=== PATIENT | male | born 1990 | race African-American/Black ===

== ENCOUNTER 2021-11-18 11:02 | Inpatient (IN) ==
[2021-11-18 11:47] LABS: Basophils # (auto) 0.06 K/uL (0-0.2); Basophils % (auto) 0.8 %; Eosinophils % (auto) 2.6 %; Hematocrit (blood only) 45.9 % (40.1-51.0); Hemoglobin 15.1 g/dl (14.0-18.0); Immature Granulocytes # (auto) 0.02 K/uL (0.00-0.02); Immature Granulocytes % (auto) 0.3 %; Lymphocytes # (auto) 2.33 K/uL (1.2-3.4); Lymphocytes % (auto) 30.1 %; Mean Corpuscular Hemoglobin 28.3 pg (25.0-34.0); Mean Corpuscular Hgb Conc 32.9 g/dL (32.0-36.0); Mean Corpuscular Volume 86.1 fL (80.0-100.0); Mean Platelet Volume 10.8 fL (9.4-12.4); Monocytes # (auto) 0.64 K/uL (0.24-0.82); Monocytes % (auto) 8.3 %; Neutrophils # (auto) 4.49 K/uL (1.4-6.5); Neutrophils % (auto) 57.9 %; Platelet Count 236 K/uL (130-400); RDW Coefficient of Variation 12.8 % (11.5-14.5); RDW Standard Deviation 40.4 fL (36.4-46.3); Red Blood Count 5.33 M/uL (4.63-6.08); White Blood Count 7.74 K/ul (4.8-10.8)
[2021-11-18 11:59] LABS: D Dimer 250 ug/L FEU (0-500); Partial Thromboplastin Ratio 1.1; Partial Thromboplastin Time 30.4 Seconds (21.0-31.0); Prothrombin Time 11.1 Seconds (9.0-12.0)
--- NOTE | 2021-11-18 12:12 | XRay Report ---
XR chest 1V portable CLINICAL HISTORY: Chest Pain TECHNIQUE: Single frontal radiograph of the chest was obtained. Comparison: None available at the time of this dictation. FINDINGS: No lines and tubes are seen. The cardiomediastinal silhouette is normal. The lungs are clear. Patient has a reported nodule/mass in the left lung, this is not well visualized radiographically. There is a left apical pneumothorax measuring approximately 36 mm in greatest thickness. IMPRESSION: Left apical pneumothorax measuring up to 36 mm. ACT 112: Negative or not required by law. Electronically signed by: Pro Sharpe M.D. 11/18/2021 12:10 PM
[2021-11-18 12:14] LABS: Troponin I High Sensitivity < 2.3 pg/ml (0-20)
[2021-11-18 12:15] LABS: Alanine Aminotransferase 12 U/L (7-52); Albumin Globulin Ratio 1.5 (0.9-2); Albumin Level 4.3 gm/dl (3.4-5.0); Alkaline Phosphatase 107 U/L (34-104); Anion Gap 5 (3-11); Aspartate Aminotransferase 16 U/L (13-39); BUN Creatinine Ratio 10.5 (10-20); Bilirubin,Total 0.8 mg/dl (0.2-1.0); Blood Urea Nitrogen 11 mg/dl (6-23); Calcium 9.2 mg/dl (8.5-10.1); Carbon Dioxide 30 mmol/L (21-32); Chloride 101 mmol/L (98-107); Est GFR (African American) 109.1 ml/min; Est GFR (Non-African American) 94.1 ml/min; Globulin 2.9 gm/dl (2.5-4.0); Glucose 86 mg/dl (70-99(Fasting)); Potassium 4.1 mmol/L (3.5-5.1); Sodium 136 mmol/L (136-145); Total Protein 7.2 gm/dl (6.0-8.3)
--- NOTE | 2021-11-18 12:36 | Emergency Department Note ---
Impression & Plan Pneumothorax, Sequestered lung, Chest pain ED Provider Note NAME: ZULEIKA [id number] [place] AGE: 31 SEX: M : 1990 ARRIVES VIA: Walk-In INFORMANT: Patient ED PROVIDER(S): Dharmesh Guidry DO CHIEF COMPLAINT: Left sided chest pain HPI: Patient is a 31-year-old male who presents ER for left-sided chest pain which has been present since this past Wednesday. He admits to pain with movement of his left upper extremity. Does not change with breathing. Is currently a 6 out of 10. Does go through to the back. Denies any significant shortness of breath, belly pain, nausea, vomiting, or diarrhea. No dysuria, urgency, or frequency. No trauma. ROS: See above HPI for pertinent positives & negatives. A total of 10 systems reviewed and were otherwise negative. PAST MEDICAL HISTORY:See Below PAST SURGICAL HISTORY:See Below FAMILY HISTORY:See Below SOCIAL HISTORY:See Below HOME MEDICATIONS:See Below ALLERGIES:See Below VITALS:See Below PHYSICAL EXAMINATION: GENERAL: Sitting up in bed, alert, well appearing, well nourished, no distress, non-toxic EYE EXAM: normal conjunctiva. OROPHARYNX: no exudate, no erythema, lips, buccal mucosa, and tongue normal and mucous membranes are moist NECK: supple, no nuchal rigidity, no adenopathy, non-tender LUNGS: Clear to auscultation. Normal chest wall mechanics HEART: no murmurs, S1 normal and S2 normal ABDOMEN: abdomen soft, non-tender, normo-active bowel sounds, no masses, no rebound or guarding. BACK: Back is symmetrical on inspection and there is no deformity, no midline tenderness, no CVA tenderness. SKIN: no rashes and no bruising UPPER EXTREMITIES: upper extremities are grossly normal. LOWER EXTREMITIES: No pitting edema. Calf cervical bilateral NEURO EXAM: Normal sensorium, cranial nerves II-XII grossly intact, normal speech, no gross weakness of arms, no gross weakness of legs. MEDICAL DECISION MAKING: Patient is a 31-year-old male who presents the ER for left chest pain. IV was established blood work was obtained. Labs showed no significant leukocytosis or anemia. INR unremarkable. D-dimer negative. BMP on LFTs bilirubin was unremarkable. Troponin was negative. Chest x-ray shows pneumothorax but patient reports that he had a lung mass previously and consequently CT a of the chest was performed which showed lung sequestration in combination with 20% pneumothorax. This was discussed with Dr. Combs from our pulmonology service and he recommended discussing with thoracic surgery to see if this is something that they want to operate on and have the patient transferred down to today or if they will follow this up as an outpatient. Called [facility] and sent the images via text message to thoracic surgeon to review them as he w as unable to get them in life image as it was down. He recommends having him follow-up as an outpatient and they will contact him as they have his information as he was set up to have surgery in [place] but never followed up. Patient was updated at bedside. Discussed with Basilio Silva from [facility] service and patient was admitted. Dr. Combs was updated patient was admitted for further work-up. He remained on nonrebreather while in the ER. Triage Nursing notes reviewed. Limited review of prior medical records performed Vital Signs: reviewed and remarkable for no significant abnormalities Differential diagnosis: Cardiac ischemia, aortic dissection, pulmonary embolism, pneumothorax, pneumonia, pericarditis, myocarditis, esophageal rupture, GERD, cholecystitis, pancreatitis, musculoskeletal, as well as other pathologies. ER treatment provided: See below Diagnostics interpreted by me: ECG: Sinus rhythm rate of 76 Normal axis No PVCs QTC 396 T wave version in V1 Cardiac Monitoring: An order was placed for continuous cardiac monitoring. The monitor shows a rate of 75 with sinus rhythm. Laboratory studies: As stated above and show below. Imaging studies: CT angio of the chest as described above Chest x-ray with a pneumothorax Consultation(s): Discussed with [facility] hospitalist, [facility] ore storage drier and [facility] [address] thoracic surgery as described above Procedures: none Critical Care: I have personally spent 33 minutes of critical care time in the direct managemen t of this patient. This includes bedside care, interpretation of diagnostic studies, and testing, discussion with consultants, patient, and family members, and other required patient management activities. This 33 minutes is in excess of all separately billable procedures. Past Med/Surg History Social History Smoking Status: Never smoker Allergies Allergies Allergy/AdvReac Type Severity Reaction Status Date / Time aspirin Allergy Severe Verified 11/18/21 14:43 Home Meds Home Medications Medication Instructions Recorded Confirmed No Known Home Medications 11/18/21 11/18/21 Results & Data (ED) Vital Signs Vital Signs - 24 hr 11/18/21 11:09 11/18/21 12:10 11/18/21 12:10 Temperature 36.5 C Temperature Source Skin Pulse Rate 86 Pulse Rate [Apical] Pulse Rate from SpO2 Sensor Pulse Rhythm [Apical] Respiratory Rate 20 18 Respiratory Effort / Characteristics Non-Labored Spontaneous Respiratory Depth Normal Respiratory Pattern Regular Blood Pressure 129/73 Blood Pressure [Left Arm] Blood Pressure Mean 91 Blood Pressure Mean [Left Arm] Pulse Oximetry 98 99 99 Oxygen Delivery Method Room Air Room Air Room Air Oxygen Flow Rate Sepsis Recent Fever Within 48 Hours No Sepsis New/Unexplained Change in Mental Status N/A Sepsis Action Taken by Nursing No Action Required 11/18/21 12:39 11/18/21 15:11 11/18/21 12:39 Temperature 36.8 C Temperature Source Oral Pulse Rate 86 Pulse Rate [Apical] 84 82 Pulse Rate from SpO2 Sensor Pulse Rhythm [Apical] Regular Respiratory Rate 18 18 Respiratory Effort / Characteristics Non-Labored Spontaneous Respiratory Depth Normal Respiratory Pattern Blood Pressure Blood Pressure [Left Arm] 114/75 120/95 Blood Pressure Mean Blood Pressure Mean [Left Arm] 88 103 Pulse Oximetry 100 100 Oxygen Delivery Method Non-rebreather Non-rebreather Oxygen Flow Rate 15 15 Sepsis Recent Fever Within 48 Hours Sepsis New/Unexplained Change in Mental Status Sepsis Action Taken by Nursing 11/18/21 13:00 11/18/21 13:30 11/18/21 14:00 Temperature Temperature Source Pulse Rate 87 97 H 90 Pulse Rate [Apical] Pulse Rate from SpO2 Sensor 87 95 H 92 H Pulse Rhythm [Apical] Respiratory Rate 22 18 23 Respiratory Effort / Characteristics Respiratory Depth Respiratory Pattern Blood Pressure 114/75 Blood Pressure [Left Arm] Blood Pressure Mean 88 Blood Pressure Mean [Left Arm] Pulse Oximetry 100 100 100 Oxygen Delivery Method Oxygen Flow Rate Sepsis Recent Fever Within 48 Hours Sepsis New/Unexplained Change in Mental Status Sepsis Action Taken by Nursing Laboratory Data Result diagrams: 11/18/21 11:28 11/18/21 11:28 Lab Results 11/18/21 11/18/21 11/18/21 Range/Units 11:28 11:28 11:28 WBC 7.74 (4.8-10.8) K/ul RBC 5.33 (4.63-6.08) M/uL Hgb 15.1 (14.0-18.0) g/dl Hct 45.9 (40.1-51.0) % MCV 86.1 (80.0-100.0) fL MCH 28.3 (25.0-34.0) pg MCHC 32.9 (32.0-36.0) g/dL RDW Std Deviation 40.4 (36.4-46.3) fL RDW Coeff of Russel 12.8 (11.5-14.5) % Plt Count 236 (130-400) K/uL MPV 10.8 (9.4-12.4) fL Immature Gran % (Auto) 0.3 % Neut % (Auto) 57.9 % Lymph % (Auto) 30.1 % [place] % (Auto) 8.3 % Eos % (Auto) 2.6 % Baso % (Auto) 0.8 % Neut # (Auto) 4.49 (1.4-6.5) K/uL Lymph # (Auto) 2.33 (1.2-3.4) K/uL [place] # (Auto) 0.64 (0.24-0.82) K/uL Eos # (Auto) 0.20 (0-0.50) K/uL Baso # (Auto) 0.06 (0-0.2) K/uL Immature Gran # (Auto) 0.02 (0.00-0.02) K/uL PT 11.1 (9.0-12.0) Seconds INR 1.0 (0.9-1.1) APTT 30.4 (21.0-31.0) Seconds PTT Ratio 1.1 D-Dimer 250 (0-500) ug/L FEU Sodium 136 (136-145) mmol/L Potassium 4.1 (3.5-5.1) mmol/L Chloride 101 (98-107) mmol/L Carbon Dioxide 30 (21-32) mmol/L Anion Gap 5 (3-11) BUN 11 (6-23) mg/dl Creatinine 1.05 (0.6-1.4) mg/dl Est Cr Clr Drug Dosing 114.0 ml/min Est GFR ( Amer) 109.1 ml/min Est GFR (Non-Af Amer) 94.1 ml/min BUN/Creatinine Ratio 10.5 (10-20) Glucose 86 (70-99(Fasting)) mg/dl Calcium 9.2 (8.5-10.1) mg/dl Total Bilirubin 0.8 (0.2-1.0) mg/dl AST 16 (13-39) U/L ALT 12 (7-52) U/L Alkaline Phosphatase 107 H (34-104) U/L Troponin I High Sens < 2.3 (0-20) pg/ml Total Protein 7.2 (6.0-8.3) gm/dl Albumin 4.3 (3.4-5.0) gm/dl Globulin 2.9 (2.5-4.0) gm/dl Albumin/Globulin Ratio 1.5 (0.9-2) Administered Medications Discontinued Medications Ioversol (Optiray 300 500ml) 112 ml IV ONCE ONE Stop: 11/18/21 12:56 Last Admin: 11/18/21 12:56 Dose: 112 ml Documented By: [facility] Data Radiologist's Impression: Chest X-Ray 11/18/21 11:13 XR chest 1V portable CLINICAL HISTORY: Chest Pain TECHNIQUE: Single frontal radiograph of the chest was obtained. Comparison: None available at the time of this dictation. FINDINGS: No lines and tubes are seen. The cardiomediastinal silhouette is normal. The lungs are clear. Patient has a reported nodule/mass in the left lung, this is not well visualized radiographically. There is a left apical pneumothorax measuring approximately 36 mm in greatest thickness. IMPRESSION: Left apical pneumothorax measuring up to 36 mm. ACT 112: Negative or not required by law. Electronically signed by: Pro Sharpe M.D. 11/18/2021 12:10 PM Chest CTA 11/18/21 12:12 CT ANGIOGRAPHY OF THE CHEST, PULMONARY EMBOLUS PROTOCOL CLINICAL HISTORY: Shortness of breath. Left-sided chest pain. COMPARISON STUDY: Chest radiograph performed earlier today. TECHNIQUE: Following IV administration of 112 mL of Optiray, helical axial i mages of the chest were obtained utilizing the pulmonary embolus protocol. Maximal intensity projections and sagittal and coronal reformats were viewed on an independent 3D workstation. IV contrast was administered without complication. Automated exposure control was utilized for the study. A dose lowering technique was utilized adhering to the principles of ALARA. CT DOSE: 448.84 mGycm FINDINGS: No pulmonary emboli are identified. There is no thoracic aortic dissection. Trace left pleural effusion. Size of the heart is normal. There is no pericardial effusion. A small left pneumothorax occupying 20% of the hemithorax is noted. There is no right pneumothorax. No acute rib fractures are identified. No definite blebs are identified. Note is made of a vessel measuring 9 mm in caliber arising from the left lateral aspect of the distal descending thoracic aorta. This supplies the posterior and medial basal segments of the left lower lobe. Air trapping is noted. Scattered airspace opacities within this portion of the lung are noted. Secretions within the bronchi are noted. No additional anomalies are identified on this exam. No significant abnormality within the bony thorax and visualized portions of the upper abdomen is present. IMPRESSION: 1. No pulmonary emboli identified. 2. Small left pneumothorax occupying 20% of the left hemithorax. Trace left pleural effusion. No definite blebs identified. 3. Large vessel measuring 9 mm in caliber arising from the left lateral aspect of the distal descending thoracic aorta which supplies the posterior and medial basal segments of the left lower lobe. This represents an intralobar pulmonary sequestration. Associated airspace opacities may reflect pneumonia. Although unusual, these can be a cause for spontaneous pneumothorax. Therefore, the pneu mothorax could be related to the sequestration or an occult bleb. Thoracic surgical consultation is recommended. ACT 112: Negative or not required by law. Electronically signed by: Tommy Winter M.D. 11/18/2021 1:17 PM Discharge Plan Visit Data Chief Complaint: Chest Pain Stated Complaint: CHEST PAIN, HX OF PE ED Provider: Dharmesh Guidry Discharge Problem: Pneumothorax, Sequestered lung, Chest pain Forms Stand Alone Forms: My [employer] Prescriptions Prescriptions: No Action No Known Home Medications Referrals Referrals: Rajat ELLIOTT [Primary Care Provider] -
[2021-11-18] MEDS ORDERED: OPTIRAY 300 500mL IV ONE (12:55)
--- NOTE | 2021-11-18 13:19 | CT Scan Report ---
CT ANGIOGRAPHY OF THE CHEST, PULMONARY EMBOLUS PROTOCOL CLINICAL HISTORY: Shortness of breath. Left-sided chest pain. COMPARISON STUDY: Chest radiograph performed earlier today. TECHNIQUE: Following IV administration of 112 mL of Optiray, helical axial images of the chest were o btained utilizing the pulmonary embolus protocol. Maximal intensity projections and sagittal and cor onal reformats were viewed on an independent 3D workstation. IV contrast was administered without co mplication. Automated exposure control was utilized for the study. A dose lowering technique was ut ilized adhering to the principles of ALARA. CT DOSE: 448.84 mGycm FINDINGS: No pulmonary emboli are identified. There is no thoracic aortic dissection. Trace left ple ural effusion. Size of the heart is normal. There is no pericardial effusion. A small left pneumothor ax occupying 20% of the hemithorax is noted. There is no right pneumothorax. No acute rib fractures a re identified. No definite blebs are identified. Note is made of a vessel measuring 9 mm in caliber a rising from the left lateral aspect of the distal descending thoracic aorta. This supplies the motel front desk clerk ior and medial basal segments of the left lower lobe. Air trapping is noted. Scattered airspace opaci ties within this portion of the lung are noted. Secretions within the bronchi are noted. No additiona l anomalies are identified on this exam. No significant abnormality within the bony thorax and visual ized portions of the upper abdomen is present. IMPRESSION: 1. No pulmonary emboli identified. 2. Small left pneumothorax occupying 20% of the left hemithorax. Trace left pleural effusion. No defi nite blebs identified. 3. Large vessel measuring 9 mm in caliber arising from the left lateral aspect of the distal descendi ng thoracic aorta which supplies the posterior and medial basal segments of the left lower lobe. This represents an intralobar pulmonary sequestration. Associated airspace opacities may reflect pneumoni a. Although unusual, these can be a cause for spontaneous pneumothorax. Therefore, the pneumothorax c ould be related to the sequestration or an occult bleb. Thoracic surgical consultation is recommended . ACT 112: Negative or not required by law. Electronically signed by: Tommy Winter M.D. 11/18/2021 1:17 PM
--- NOTE | 2021-11-18 13:30 | Electrocardiogram Report ---
Test Reason : Blood Pressure : / mmHG Vent. Rate : 076 BPM Atrial Rate : 076 BPM P-R Int : 134 ms QRS Dur : 078 ms QT Int : 352 ms P-R-T Axes : 064 089 056 degrees QTc Int : 396 ms Normal sinus rhythm Normal ECG No previous ECGs available Confirmed by Maxwell Wilder ([id number]) on 11/18/2021 1:29:53 PM Referred By: Rajat ELLIOTT Confirmed By:Maxwell Wilder
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
--- NOTE | 2021-11-18 17:06 | Pulmonary Consultation ---
Date of Consultation November 18, 2021 Assessment & Plan (1) Spontaneous pneumothorax: (2) Pulmonary sequestration: (3) Chest pain: Plan CT chest 11/18/2021 personally reviewed: Left-sided pneumothorax with no mediastinal shift Left lower lobe pulmonary sequestration with blood vessel coming directly from descending thoracic aorta Left lower lobe sequestrated pulmonary note does show some tree-in-bud opacity/nodularity No mediastinal adenopathy --Spontaneous pneumothorax Left-sided No prior history of trauma On the CT chest I do not see any clear blebs Continue to monitor with nonrebreather is If there is any worsening in pneumothorax will do aspiration or chest tube placement -- Pulmonary sequestration Seems to be intralobar left lower lobe There is a blood vessel directly coming from descending thoracic aorta Nonurgent cardiothoracic consultation ER did reach out to [place] [facility] surgery who recommended conservative management right now and outpatient follow-up -- History of marijuana use Plan: Continue with nonrebreather Avoid any intervention which increases intrathoracic pressure which includes flutter valve, BiPAP/CPAP, high flow Repeat chest x-ray every 4-6 hours Case discussed with Dr Rosas Please note the above document was generated using voice recognition software. It may contain grammatical, syntax or spelling errors.Any formal questions or concerns about the content, text or information contained within the body of this dictation should be directly addressed to the provider for clarification. History of Present Illness History of Present Illness 31-year-old male presents to the hospital for left-sided chest pain Past medical history: History of blood clot in the past back in 2017- for which he was given 3 months of treatment Patient had a chest x-ray done which showed left-sided pneumothorax Pulmonary consulted for the same At the time of examination patient was on nonrebreather, saturating 100%, respiration was in mid teens. Blood pressure in systolic 120's Patient still complained of chest pain which is worse when he is taking a deep breath in. Does not radiate. Usually in the lateral lower back. Denies any history of trauma, no coughing fit. No recent heavy lifting or exercise. No fever or chills No headache, no blurry vision. No family history of any lung disease No history of pulmonary problems in the past Social history: Denies any cigarette smoking, used to do marijuana recreationally before. Allergies Allergy/AdvReac Type Severity Reaction Status Date / Time aspirin Allergy Severe Verified 11/18/21 14:43 Home Medications Medication Instructions Recorded Confirmed Type No Known Home Medications 11/18/21 11/18/21 History Patient History Social History Smoking Status: Never smoker Review of Systems Review of Systems: All systems reviewed & are unremarkable except as noted in HPI & below Physical Exam Physical Exam: Constitutional: No acute distress HEENT: EOMI, PERRLA Respiratory system: Decreased air entry on the left side, no wheeze, no rhonchi, no crackles CVS: S1-S2 positive, no murmurs or gallops Abdomen: Soft, nontender, nondistended, positive bowel sounds x4 Extremities: +2 pulses bilaterally radialis/ dorsalis pedis, no cyanosis, no edema Neuro: Awake alert oriented x3 Psych: Normal mood and affect G/U: No Serna Skin: no rashes, warm and dry Tattoos all over the body Lymphatic: no cervical or axillary lymphadenopathy Results & Data Results & Data ([facility]) Vital Signs (Past 12 Hours) Vital Signs Temp Pulse Pulse Resp BP BP Pulse Ox 11/18/21 14:00 90 23 100 11/18/21 13:30 97 H 18 114/75 100 11/18/21 13:00 87 22 100 11/18/21 12:39 86 11/18/21 15:11 82 18 120/95 100 11/18/21 12:39 36.8 C 84 18 114/75 100 11/18/21 12:10 18 99 11/18/21 12:10 99 11/18/21 11:09 36.5 C 86 20 129/73 98 O2 Del Method O2 Flow Rate 11/18/21 14:00 11/18/21 13:30 11/18/21 13:00 11/18/21 12:39 11/18/21 15:11 Non-rebreather 15 11/18/21 12:39 Non-rebreather 15 11/18/21 12:10 Room Air 11/18/21 12:10 Room Air 11/18/21 11:09 Room Air Laboratory Results 11/18/21 11:28 11/18/21 11:28 PG Care Time/CCT Total # of Minutes Spent Total Time Spent with Patient: Total time spent is greater than 50% in coordination of care (as documented) at patient's floor/unit and/or counseling patient: [place] [address] Inpt Consult Level 5 Patient Type New Diagnoses Spontaneous pneumothorax J93.83 Pulmonary sequestration Q33.2 Chest pain R07.9
--- NOTE | 2021-11-18 17:20 | XRay Report ---
XR chest 1V portable CLINICAL HISTORY: f/u COMPARISON STUDY: Chest radiograph and chest CT performed earlier today. FINDINGS: A small left apical pneumothorax is similar to prior chest radiograph. No right pneumothora x is present. Left lower lung airspace opacity is noted. Cardiac size is normal. IMPRESSION: 1. No significant change in a small left apical pneumothorax. 2. Left lower lung airspace opacity shown to represent an intralobar pulmonary sequestration with pos sible associated pneumonia on chest CT. ACT 112: Negative or not required by law. Electronically signed by: Tommy Winter M.D. 11/18/2021 5:19 PM
[2021-11-18] MEDS ORDERED: POLYETHYLENE (MIRALAX) 17 GM PACK PO PRN (18:37)
[2021-11-18] MEDS: ACETAMINOPHEN 325 MG TAB PO PRN (20:36)
[2021-11-18] MEDS: guaiFENesin/DEXTROM SYRUP 200MG/20MG 10ML UDC PO SCH (20:36)
[2021-11-18] MEDS ORDERED: KETOROLAC TROMETHAMINE 15 MG/ML VIAL IV ONE (21:49)
[2021-11-19] MEDS: guaiFENesin/DEXTROM SYRUP 200MG/20MG 10ML UDC PO SCH ×4 (02:04→17:41)
[2021-11-19 08:14] LABS: Basophils # (auto) 0.05 K/uL (0-0.2); Basophils % (auto) 0.9 %; Eosinophils # (auto) 0.31 K/uL (0-0.50); Eosinophils % (auto) 5.5 %; Hematocrit (blood only) 45.5 % (40.1-51.0); Hemoglobin 14.7 g/dl (14.0-18.0); Immature Granulocytes # (auto) 0.01 K/uL (0.00-0.02); Immature Granulocytes % (auto) 0.2 %; Lymphocytes # (auto) 1.97 K/uL (1.2-3.4); Lymphocytes % (auto) 35.1 %; Mean Corpuscular Hemoglobin 27.7 pg (25.0-34.0); Mean Corpuscular Hgb Conc 32.3 g/dL (32.0-36.0); Mean Corpuscular Volume 85.7 fL (80.0-100.0); Monocytes # (auto) 0.63 K/uL (0.24-0.82); Monocytes % (auto) 11.2 %; Neutrophils # (auto) 2.65 K/uL (1.4-6.5); Neutrophils % (auto) 47.1 %; Platelet Count 240 K/uL (130-400); RDW Coefficient of Variation 12.8 % (11.5-14.5); RDW Standard Deviation 39.8 fL (36.4-46.3); Red Blood Count 5.31 M/uL (4.63-6.08); White Blood Count 5.62 K/ul (4.8-10.8)
[2021-11-19] MEDS: ACETAMINOPHEN 325 MG TAB PO PRN (08:24)
--- NOTE | 2021-11-19 08:28 | Pulmonology Progress Note ---
Date of Service November 19, 2021 Assessment & Plan (1) Spontaneous pneumothorax: (2) Pulmonary sequestration: (3) Chest pain: Plan CT chest 11/18/2021 personally reviewed: Left-sided pneumothorax with no mediastinal shift Left lower lobe pulmonary sequestration with blood vessel coming directly from descending thoracic aorta Left lower lobe sequestrated pulmonary note does show some tree-in-bud opacity/nodularity No mediastinal adenopathy --Spontaneous pneumothorax Left-sided No prior history of trauma On the CT chest I do not see any clear blebs Continue to monitor with nonrebreather is If there is any worsening in pneumothorax will do aspiration or chest tube placement -- Pulmonary sequestration Seems to be intralobar left lower lobe There is a blood vessel directly coming from descending thoracic aorta Nonurgent cardiothoracic consultation ER did reach out to [place] [facility] surgery who recommended conservative management right now and outpatient follow-up -- History of marijuana use Plan: Chest x-ray from today does not show any significant change in the left-sided pneumothorax I will repeat a chest x-ray again at 1 PM if it is still present then I will put a chest tube in. Please note the above document was generated using voice recognition software. It may contain grammatical, syntax or spelling errors.Any formal questions or concerns about the content, text or information contained within the body of this dictation should be directly addressed to the provider for clarification. Admission and Anticipated Discharge Date Admission Date: November 18, 2021 Subjective Patient seen and examined at bedside. No acute distress, no adverse events overnight. Chest pain is better compared to before. No shortness of breath He did use nonrebreather all night. No nausea vomiting No coughing. Fair appetite. Review of Systems Review of Systems: All systems reviewed & are unremarkable except as noted in Subjective Physical Exam Physical Exam: Constitutional: No acute distress HEENT: EOMI, PERRLA Respiratory system: Decreased air entry on the left side, no wheeze, no rhonchi, no crackles CVS: S1-S2 positive, no murmurs or gallops Abdomen: Soft, nontender, nondistended, positive bowel sounds x4 Extremities: +2 pulses bilaterally radialis/ dorsalis pedis, no cyanosis, no edema Neuro: Awake alert oriented x3 Psych: Normal mood and affect G/U: No Serna Skin: no rashes, warm and dry Lymphatic: no cervical or axillary lymphadenopathy Results & Data Results & Data ([facility]) Vital Signs (Past 12 Hours) Vital Signs Temp Pulse Pulse Resp BP Pulse Ox O2 Del Method 11/19/21 08:04 36.8 C 76 16 99/69 L 100 Non-rebreather 11/19/21 02:51 35.8 C L 67 18 99/59 L 100 Non-rebreather 11/18/21 22:15 65 11/18/21 22:36 36.5 C 64 18 106/62 100 Non-rebreather O2 Flow Rate 11/19/21 08:04 15 11/19/21 02:51 11/18/21 22:15 11/18/21 22:36 Laboratory Results 11/19/21 07:28 PG Care Time/CCT Total # of Minutes Spent Total Time Spent with Patient: Total time spent is greater than 50% in coordination of care (as documented) at patient's floor/unit and/or counseling patient: Coding Level of Care Code 26931 Subseq Hosp Care Lvl 3 Diagnoses Spontaneous pneumothorax J93.83 Pulmonary sequestration Q33.2 Chest pain R07.9
--- NOTE | 2021-11-19 09:02 | XRay Report ---
XR chest 2V PA/lateral CLINICAL HISTORY: Pneumothorax TECHNIQUE: 2 views of the chest were obtained. Comparison: Comparison is made to chest radiograph 11/19/2021 and CTA chest 11/18/2021 FINDINGS: No lines and tubes are seen. The cardiomediastinal silhouette is normal. A left pneumothorax measures 45 mm in greatest thickness, slightly increased from prior exam. Density in the left lower lung may represent pneumonia seen on CT. IMPRESSION: 1. Minimal increase in small left pneumothorax. 2. Redemonstration of left lower lobe pneumonia. ACT 112: Negative or not required by law. Electronically signed by: Pro Sharpe M.D. 11/19/2021 9:01 AM
[2021-11-19] MEDS: AZITHROMYCIN 250 MG TAB PO SCH (09:06)
--- NOTE | 2021-11-19 09:22 | XRay Report ---
SINGLE VIEW CHEST CLINICAL HISTORY: Follow-up pneumothorax. FINDINGS: 2 AP, portable, upright chest radiographs are compared to chest x-ray and chest CT performe d earlier the same day 11/18/2021. The cardiomediastinal silhouette is unremarkable. A moderate left a pical pneumothorax has not appreciably changed from today's earlier examination. There is approximate ly 4.3 cm of apical pleural separation. Left basilar opacities are similar to previous. Question trac e left pleural effusion. The right lung appears clear. The bony thorax is grossly intact. IMPRESSION: 1. A moderate left apical pneumothorax is unchanged. 2. Left basilar opacities are similar to previous. This may represent a sequestration when correlated with today's chest CT. 3. Question trace left pleural effusion. ACT 112: Negative or not required by law. Electronically signed by: Lance Birmingham M.D. 11/19/2021 9:21 AM
--- NOTE | 2021-11-19 09:23 | XRay Report ---
SINGLE VIEW CHEST CLINICAL HISTORY: Follow-up pneumothorax. FINDINGS: 2 AP, portable, upright chest radiographs are compared to chest x-ray and chest CT dated . The cardiomediastinal silhouette is unremarkable. A moderate left apical pneumothorax has no t appreciably changed from today's earlier examination. There is approximately 4.1 cm of apical pleur al separation. Left basilar opacities are similar to previous. No large pleural effusion is identifie d. The right lung appears clear. The bony thorax is grossly intact. IMPRESSION: 1. A moderate left apical pneumothorax is unchanged. 2. Left basilar opacities are similar to previous. This may represent a sequestration when correlated with today's chest CT. ACT 112: Negative or not required by law. Electronically signed by: Lance Birmingham M.D. 11/19/2021 9:22 AM
[2021-11-19 09:32] LABS: Albumin Globulin Ratio 1.5 (0.9-2); Albumin Level 4.1 gm/dl (3.4-5.0); Bilirubin,Total 1.5 mg/dl (0.2-1.0); Calcium 9.3 mg/dl (8.5-10.1); Creatinine Clr Calc Pharmacy 100.1 ml/min; Est GFR (African American) 95.7 ml/min; Est GFR (Non-African American) 82.6 ml/min; Globulin 2.8 gm/dl (2.5-4.0); Potassium 4.1 mmol/L (3.5-5.1); Total Protein 6.9 gm/dl (6.0-8.3)
[2021-11-19] MEDS: KETOROLAC 30 MG/ML VIAL IV PRN ×2 (10:04→21:54)
--- NOTE | 2021-11-19 12:45 | Hospitalist Progress Note ---
Date of Service November 19, 2021 Assessment & Plan (1) Pneumothorax: Plan: Pneumothorax, spontaneous left apical. Chest x-rays are stable. He does not have a chest tube at this point and hopefully will avoid this. IV Toradol as needed. Watchful waiting. Wean oxygen down to nasal cannula and eventually off . Pulmonary medicine consultation appreciated. (2) History of pulmonary embolism: Plan: Remote. He was treated with DOAC therapy for 3 months (3) Sequestered lung: Plan: Left lower lobe. No intervention needed at this time Plan Eventual discharge back to the assisted Admission and Anticipated Discharge Date Admission Date: November 18, 2021 Subjective Alert and oriented. Chest x-ray appears to be stable and hopefully he will avoid chest tube placement. He has a left spontaneous apical pneumothorax. There is some sequestration involving the left lung base but this does not need intervention at this time. He will be switched from oxygen mask to nasal cannula. Regular diet started. Review of Systems Review of Systems: Constitutional-no fever or chills ENT-no blurred vision, no double vision, no epistaxis, no sore throat Respiratory-no cough, no wheezing, no shortness of breath. Left-sided chest discomfort from spontaneous pneumothorax Cardiac-no palpitations, no chest pain, no syncope GI-no nausea, vomiting, diarrhea, melena, hematochezia -no urinary retention, no urinary incontinence, no dysuria, no hematuria Musculoskeletal-no joint pain, no muscle tenderness Skin-no bruising, no rashes, no pruritus Neuro-no isolated weakness, no paresthesia, no weakness Psych-no depression, no anxiety Physical Exam Physical Exam: General-alert and oriented x3, no fevers, no chills HEENT-head atraumatic and normocephalic, pupils equal and reactive to light, extraocular muscles intact Neck-no lymphadenopathy or thyromegaly, trachea midline Chest-diminished breath sounds at left apex. Right side unremarkable. No wheezing or rhonchi Cardiac-regular rate and rhythm, normal S1 and S2, no murmurs Abdomen-normal bowel sounds, nontender, no hepatosplenomegaly Extremities-no cyanosis, clubbing, or edema Neuro-cranial nerves II through XII intact, motor and sensory function within normal limits, strength symmetrical , no focal deficits Psych-normal affect, normal mood Results & Data Results & Data ([facility]) Vital Signs (Past 12 Hours) Vital Signs Temp Pulse Pulse Resp BP Pulse Ox O2 Del Method 11/19/21 08:00 56 L 11/19/21 08:00 Non-rebreather 11/19/21 08:04 36.8 C 76 16 99/69 L 100 Non-rebreather 11/19/21 02:51 35.8 C L 67 18 99/59 L 100 Non-rebreather O2 Flow Rate 11/19/21 08:00 11/19/21 08:00 15 11/19/21 08:04 15 11/19/21 02:51 Laboratory Results 11/19/21 07:28 11/19/21 07:28 PG Care Time/CCT Total # of Minutes Spent Total Time Spent with Patient: Total time spent is greater than 50% in coordination of care (as documented) at patient's floor/unit and/or counseling patient: Coding Level of Care Code 74740 Subseq Hosp Care Lvl 3 Diagnoses Pneumothorax J93.9 History of pulmonary embolism Z86.711 Sequestered lung Q33.2
--- NOTE | 2021-11-19 13:31 | XRay Report ---
XR chest 1V portable HISTORY: Left pneumothorax. Follow-up. COMPARISON: Chest 11/19/2021. FINDINGS: Slight decrease in size in the small left pneumothorax which now measure sutures a maximal pleural gap of 3.6 cm. No right-sided pneumothorax. Patchy left base airspace opacities persist. The heart is normal in size. IMPRESSION: 1. Slight decrease in size in the small left pneumothorax. 2. Left basilar airspace opacities persist. ACT 112: Negative or not required by law. Electronically signed by: Onur Giles M.D. 11/19/2021 1:29 PM
[2021-11-19] MEDS ORDERED: MoRPHine SULFATE 2 MG/ML CARP ONE (13:34)
[2021-11-19] MEDS ORDERED: MoRPHine SULFATE 2 MG/ML CARP IV ONE (13:34)
[2021-11-19] MEDS ORDERED: LIDOCAINE 1% LOCAL 20 ML VIAL INFIL ONE (13:34)
[2021-11-19] MEDS ORDERED: LIDOCAINE 1% LOCAL 20 ML VIAL ONE (13:34)
[2021-11-19] MEDS ORDERED: SODIUM CHLORIDE 0.9% 1000ML 1,000 ML IV ONE (14:00)
--- NOTE | 2021-11-19 14:38 | Procedure Note ---
Procedure Note Date of Service November 19, 2021 Note Procedure: Thora vent insertion Kiln Burner: Dr. Lindsey Combs Indication: Left-sided pneumothorax Consent: Signed by patient and verified with timeout prior to procedure Anesthesia: 1% lidocaine without epinephrine local Procedure: Consent was verified and timeout performed. Appropriate imaging studies were reviewed prior to the procedure. Patient was placed in a seated position. Appropriate site above the diaphragm on the left mid clavicular line second intercostal space for chest tube insertion was selected. The skin was prepped and draped in normal sterile fashion. Lidocaine was used for local analgesia. Fluid was aspirated via the finder needle. A small skin judy was made with the scalpel and the catheter over the needle apparatus was advanced over the rib into the pleural space. With the help of guidewire and Seldinger technique, 11 [place] Thora vent catheter was inserted and connected to Pleur-evac. No air leak appreciated after that. Chest x-ray to follow The patient tolerated the procedure without obvious complication Complications: None Blood loss: Less than 2 cc. Coding CPT Codes Pulmonary/Thoracic - Pulmonary and Thoracic: 73143 Tube thoracostomy ([id number]) [facility] [place]odes ([place]) Pulmonary/Thoracic Procedure 1: Pulmonary and Thoracic: 65669 Tube thoracostomy
--- NOTE | 2021-11-19 14:53 | XRay Report ---
XR chest 1V portable HISTORY: Post chest tube COMPARISON: Chest 11/19/2021. FINDINGS: Interval placement of a left-sided chest tube which terminates at the left midlung zone. De crease in size in the small left pneumothorax which now demonstrates a maximal pleural gap of 1.4 cm. Patchy left basilar densities persist. The right lung is clear. The heart is normal in size. Slightl y rotated study. IMPRESSION: Interval placement a left-sided chest tube with decrease in size in the small left pneumothorax. ACT 112: Negative or not required by law. Electronically signed by: Onur Giles M.D. 11/19/2021 2:51 PM
[2021-11-20] MEDS: guaiFENesin/DEXTROM SYRUP 200MG/20MG 10ML UDC PO SCH ×4 (00:18→20:35)
--- NOTE | 2021-11-20 07:45 | Pulmonology Progress Note ---
Date of Service November 20, 2021 Assessment & Plan (1) Spontaneous pneumothorax: (2) Pulmonary sequestration: (3) Chest pain: Plan CT chest 11/18/2021 personally reviewed: Left-sided pneumothorax with no mediastinal shift Left lower lobe pulmonary sequestration with blood vessel coming directly from descending thoracic aorta Left lower lobe sequestrated pulmonary note does show some tree-in-bud opacity/nodularity No mediastinal adenopathy --Spontaneous pneumothorax Left-sided No prior history of trauma On the CT chest I do not see any clear blebs or cysts which might be the cause of pneumothorax S/p Thora vent placement 11/19/2021, no continuous air leak -- Pulmonary sequestration Seems to be intralobar left lower lobe There is a blood vessel directly coming from descending thoracic aorta Nonurgent cardiothoracic consultation ER did reach out to [place] CT surgery who recommended conservative management right now and outpatient follow-up -- History of marijuana use Plan: Chest x-ray from today shows improvement in the size of the pneumothorax Approximately 1 cm pneumothorax will persist Continue with chest tube for the time being Output the patient chest tube on waterseal. Repeat chest x-ray at 3 PM today Please note the above document was generated using voice recognition software. It may contain grammatical, syntax or spelling errors.Any formal questions or concerns about the content, text or information contained within the body of this dictation should be directly addressed to the provider for clarification. Admission and Anticipated Discharge Date Admission Date: November 18, 2021 Subjective Patient seen and examined at bedside. No acute distress, no adverse events overnight. Denies any headache, no nausea, no vomiting Does complain of chest discomfort at the site of the chest tube. Shortness of breath significantly improved. Fair appetite. Review of Systems Review of Systems: All systems reviewed & are unremarkable except as noted in Subjective Physical Exam Physical Exam: Constitutional: No acute distress HEENT: EOMI, PERRLA Respiratory system: Decreased air entry in the left lower side, no wheeze, no rhonchi, no crackles CVS: S1-S2 positive, no murmurs or gallops Abdomen: Soft, nontender, nondistended, positive bowel sounds x4 Extremities: +2 pulses bilaterally radialis/ dorsalis pedis, no cyanosis, no tosha ma Neuro: Awake alert oriented x3 Psych: Normal mood and affect G/U: No Serna Skin: no rashes, warm and dry Lymphatic: no cervical or axillary lymphadenopathy Results & Data Results & Data ([facility]) Vital Signs (Past 12 Hours) Vital Signs Temp Pulse Pulse Resp BP Pulse Ox O2 Del Method 11/20/21 07:21 36.8 C 77 18 104/65 98 Room Air 11/20/21 03:19 36.8 C 78 18 106/59 L 99 Room Air 11/19/21 22:20 86 11/19/21 23:04 36.8 C 82 18 107/66 97 Room Air 11/19/21 20:00 Room Air Laboratory Results 11/19/21 07:28 11/19/21 07:28 PG Care Time/CCT Total # of Minutes Spent Total Time Spent with Patient: Total time spent is greater than 50% in coordination of care (as documented) at patient's floor/unit and/or counseling patient: Coding Level of Care Code 66791 Subseq Hosp Care Lvl 2 Diagnoses Spontaneous pneumothorax J93.83 Pulmonary sequestration Q33.2 Chest pain R07.9
--- NOTE | 2021-11-20 08:32 | Hospitalist Progress Note ---
Date of Service November 20, 2021 Assessment & Plan (1) Pneumothorax: Plan: Pneumothorax, spontaneous left apical. Chest tube with improvement on imaging .pain control . Wean oxygen, repeat CXR is stable Pulmonary medicine consultation appreciated, with pulmonary sequestration, Pulm med did call CT surg and recommends conservative management (2) History of pulmonary embolism: Plan: Remote. He was treated with DOAC therapy for 3 months (3) Sequestered lung: Plan: Left lower lobe. No intervention needed at this time, eventual CT surg referral Admission and Anticipated Discharge Date Admission Date: November 18, 2021 Subjective pt was seen and is comfortable, CXR on water seal with stable residual pneumothorax, felicitas will clamp Chest tube Review of Systems Review of Systems: Mild distress and fatigue no headache, no visual changes no speech or swallowing issues Some residual pleuritic chest pain, but no pressure or palpitations no shortness of breath at rest., No cough or wheezes no abdominal pain, nausea or vomiting, diarrhea or constipation no dysuria, hematuria or frequency no focal joint pain or swelling no back pain, CVA tenderness or radicular pain no bruising, bleeding or rashes no focal signs of weakness or numbness or altered sensation no complaints of anxiety or depression.. Physical Exam Physical Exam: The patient appeared well nourished and normally developed. Vital signs as documented. Head exam is normocephalic atraumatic Neck is without JVD, thyromegaly, or carotid bruits. Lungs are clear to auscultation, no focal loss of breath sounds Patient has a decompression needle in his anterior left chest Cardiac exam, Rhythm is regular.. No murmurs, rubs or gallops. Abdominal exam reveals normal bowel sounds, soft non tender, no masses Extremities are nonedematous and both pedal pulses are present Neurologic exam is alert and oriented, no focal loss of strength or sensation Skin is without bruises or rashes Psychologically is without concerns for anxiety or depression.. Results & Data Results & Data ([facility]) Vital Signs (Past 12 Hours) Vital Signs Temp Pulse Pulse Resp BP Pulse Ox O2 Del Method 11/20/21 07:21 98.2 F 77 18 104/65 98 Room Air 11/20/21 03:19 98.2 F 78 18 106/59 L 99 Room Air 11/19/21 22:20 86 11/19/21 23:04 98.2 F 82 18 107/66 97 Room Air PG Care Time/CCT Total # of Minutes Spent Total Time Spent with Patient: Total time spent is greater than 50% in coordination of care (as documented) at patient's floor/unit and/or counseling patient: Coding Level of Care Code 68182 Subseq Hosp Care Lvl 2 Diagnoses Pneumothorax J93.9 History of pulmonary embolism Z86.711 Sequestered lung Q33.2
[2021-11-20] MEDS: AZITHROMYCIN 250 MG TAB PO SCH (10:03)
--- NOTE | 2021-11-20 10:40 | XRay Report ---
XR chest 1V portable HISTORY: Follow left-sided pneumothorax. COMPARISON: Chest 11/19/2021. FINDINGS: Left-sided chest tube is again noted overlying the left upper lung zone. Small patchy densi ty adjacent to the left-sided chest tube may be due to the overlying tape. This bears watching future examinations. There is a small left apical pneumothorax which is decreased in size. This demonstrate s a maximal pleural gap of 1 cm, previously measuring 1.4 cm. Left basilar patchy densities persist. The right lung is clear. The heart is normal in size. IMPRESSION: 1. Continued decrease in size in the small left pneumothorax as described above. 2. Left basilar densities persist. ACT 112: Negative or not required by law. Electronically signed by: Onur Giles M.D. 11/20/2021 10:39 AM
--- NOTE | 2021-11-20 15:44 | XRay Report ---
XR chest 1V portable CLINICAL HISTORY: Left pneumothorax TECHNIQUE: Single frontal radiograph of the chest was obtained. Comparison: Comparison is made to chest radiograph 11/20/2021 FINDINGS: A left chest tube is again seen. The cardiomediastinal silhouette is normal. The left apical pneumoth orax measures approximately 10 mm in diameter, unchanged from prior exam. IMPRESSION: Stable appearance of left chest tube. Left apical pneumothorax is unchanged in size measuring approxi mately 10 mm. ACT 112: Negative or not required by law. Electronically signed by: Pro Sharpe M.D. 11/20/2021 3:43 PM
[2021-11-21] MEDS: guaiFENesin/DEXTROM SYRUP 200MG/20MG 10ML UDC PO SCH ×3 (00:33→12:44)
--- NOTE | 2021-11-21 08:56 | XRay Report ---
XR chest 1V portable HISTORY: Follow-up. Left-sided pneumothorax. COMPARISON: Chest 11/20/2021. FINDINGS: Small left apical pneumothorax has slightly decreased in size and now measures 8 mm. Left c hest tube remains unchanged in position. The right lung is clear. Left basilar airspace opacity/seque stration again noted. The heart is normal in size. IMPRESSION: 1. Slight decrease in size in the small left apical pneumothorax. The left-sided chest tube is unchan ged in position. 2. Left basilar opacity/sequestration remains unchanged. ACT 112: Negative or not required by law. Electronically signed by: Onur Giles M.D. 11/21/2021 8:55 AM
[2021-11-21] MEDS: AZITHROMYCIN 250 MG TAB PO SCH (08:57)
--- NOTE | 2021-11-21 10:26 | Pulmonology Progress Note ---
Date of Service November 21, 2021 Assessment & Plan (1) Spontaneous pneumothorax: (2) Pulmonary sequestration: (3) Chest pain: Plan CT chest 11/18/2021 personally reviewed: Left-sided pneumothorax with no mediastinal shift Left lower lobe pulmonary sequestration with blood vessel coming directly from descending thoracic aorta Left lower lobe sequestrated pulmonary note does show some tree-in-bud opacity/nodularity No mediastinal adenopathy --Spontaneous pneumothorax Left-sided No prior history of trauma On the CT chest I do not see any clear blebs or cysts which might be the cause of pneumothorax S/p Thora vent placement 11/19/2021, no continuous air leak -- Pulmonary sequestration Seems to be intralobar left lower lobe There is a blood vessel directly coming from descending thoracic aorta Nonurgent cardiothoracic consultation ER did reach out to [place] [facility] surgery who recommended conservative management right now and outpatient follow-up -- History of marijuana use Plan: No significant change in the size of the pneumothorax on the left side while being on waterseal for more than 24 hours I clamped the tube today around 8:30 AM. We will repeat a chest x-ray around 1 PM. If the chest x-ray does not show any increase in size of the pneumothorax, we will discontinue the chest tube Case was discussed with ROSIE Denton Please note the above document was generated using voice recognition software. It may contain grammatical, syntax or spelling errors.Any formal questions or concerns about the content, text or information contained within the body of this dictation should be directly addressed to the provider for clarification. Admission and Anticipated Discharge Date Admission Date: November 18, 2021 Subjective Patient seen and examined at bedside. No acute distress, no delusions overnight Does complain of chest discomfort at the site of the chest tube No significant chest pain No shortness of breath Not coughing anything Fair appetite No headache Review of Systems Review of Systems: All systems reviewed & are unremarkable except as noted in Subjective Physical Exam Physical Exam: Constitutional: No acute distress HEENT: EOMI, PERRLA Respiratory system: Decreased air entry in the left lower side, no wheeze, no rhonchi, no crackles CVS: S1-S2 positive, no murmurs or gallops Abdomen: Soft, nontender, nondistended, positive bowel sounds x4 Extremities: +2 pulses bilaterally radialis/ dorsalis pedis, no cyanosis, no edema Neuro: Awake alert oriented x3 Psych: Normal mood and affect G/U: No Serna Skin: no rashes, warm and dry Lymphatic: no cervical or axillary lymphadenopathy Results & Data Results & Data ([facility]) Vital Signs (Past 12 Hours) Vital Signs Temp Pulse Pulse Pulse Resp BP Pulse Ox 11/21/21 08:00 67 11/21/21 08:00 36.9 C 80 18 118/78 98 11/21/21 03:31 36.4 C L 68 16 103/68 98 11/20/21 23:20 36.7 C 75 18 113/71 97 O2 Del Method 11/21/21 08:00 11/21/21 08:00 Room Air 11/21/21 03:31 Room Air 11/20/21 23:20 Room Air Laboratory Results 11/19/21 07:28 11/19/21 07:28 PG Care Time/CCT Total # of Minutes Spent Total Time Spent with Patient: Total time spent is greater than 50% in coordination of care (as documented) at patient's floor/unit and/or counseling patient: Coding Level of Care Code 75468 Subseq Hosp Care Lvl 2 Diagnoses Spontaneous pneumothorax J93.83 Pulmonary sequestration Q33.2 Chest pain R07.9
--- NOTE | 2021-11-21 14:03 | XRay Report ---
XR chest 1V portable HISTORY: 31 years-old Male f/u. Chest tube clamped follow-up study in a patient with a left-sided ch est tube and pneumothorax COMPARISON: Chest radiograph of same day at 6:49 AM, CTA chest 11/18/2021. TECHNIQUE: Portable AP view of the chest FINDINGS: Persistent tiny left apical pneumothorax with pleural separation of approximately 1 cm. A left-sided chest tube is in stable positioning. Cardiac mediastinal and hilar silhouettes are within normal limi ts. No pleural effusion, or overt pulmonary edema. Left basilar opacities/sequestration redemonstrate d. The bones of the chest appear grossly intact. IMPRESSION: 1. Unchanged positioning of the left-sided pleural catheter with stable tiny left apical pneumothorax . 2. Left basilar opacities/pulmonary sequestration redemonstrated. ACT 112: Negative or not required by law. The above report was generated using voice recognition software. It may contain grammatical, syntax o r spelling errors. Electronically signed by: Rell Reyes M.D. 11/21/2021 2:02 PM
--- NOTE | 2021-11-21 15:05 | Procedure Note ---
Procedure Note Date of Service November 21, 2021 Note Procedure: Pigtail chest tube removal Product Support Consultant: Dr. Lindsey Combs Indication: No change in the size of pneumothorax with a clamp tube Consent: Verbal consent obtained from patient and verified with timeout prior to procedure Procedure: Under sterile and aseptic measures. Left-sided chest tube was removed on examination. Vaseline gauze was placed and covered with 4 x 4 gauze. It was securely taped Patient tolerated the procedure well Complications: None Blood loss: None Coding CPT Codes Pulmonary/Thoracic - Pulmonary and Thoracic: 64082 Remove lung catheter ([id number]) [facility] [place] (Charges) Pulmonary/Thoracic Procedure 1: Pulmonary and Thoracic: 91982 Remove lung catheter
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
[2021-11-21 16:13] VITALS: BP 100/58; PULSE 78; TEMP 98.4; O2SAT 98
== END 2021-11-21 17:40 | DRG 199 ==
LOC: ED 11:02 → 2S 15:11 → SUATTDRO 15:11 → 2S 18:11
DX: J18.9 Pneumonia, unspecified organism; Z88.6 Allergy status to analgesic agent; J93.83 Other pneumothorax; Q33.2 Sequestration of lung; Z86.711 Personal history of pulmonary embolism